=== PATIENT | male | born 1960 | race African-American/Black ===

== ENCOUNTER 2017-12-05 21:45 | Emergency (ER) | payer OTHER ==
[2017-12-05] MEDS: DIPHTH,PERTUSS(ACELL),TET TOX 0.5 ML DISP.SYRIN. VAX IM (22:18)
== END 2017-12-05 22:15 | disposition home or self-care (01) ==
LOC: ER 21:45
DX: S51.812A Laceration without foreign body of left forearm, initial encounter (principal); W26.0XXA Contact with knife, initial encounter; Y93.89 Activity, other specified; Y99.8 Other external cause status; Y92.89 Other specified places as the place of occurrence of the external cause
CPT/HCPCS: 90471; 90715; 99283-25